=== PATIENT | female | born 1995 | race Caucasian/White ===

== ENCOUNTER 2019-09-15 17:38 | Emergency (ER) | payer SELFPAY ==
[~2019-09-15] VITALS: Ht 160 cm; Wt 91.0 kg
[~2019-09-15 17:38] MED LIST: NITR-87; TOPUD
[2019-09-15 18:38] VITALS: BP 125/66
== END 2019-09-15 22:09 | disposition left against medical advice (07) ==
LOC: ER 17:38
DX: Z53.21 Procedure and treatment not carried out due to patient leaving prior to being seen by health care provider (principal)